=== PATIENT | male | born 1955 | race Caucasian/White ===

== ENCOUNTER 2025-05-25 16:18 | Outpatient (CLI) | payer MEDICARE, OTHER | END 2025-05-25 16:19 | disposition home or self-care (01) | LOC: SCSRAD 16:18 | PROVIDERS: ATTEND Nurse Practitioner Family | DX: M25.551 Pain in right hip (principal) ==

== ENCOUNTER 2025-06-15 15:29 | Outpatient (CLI) | payer MEDICARE | END 2025-06-15 15:30 | disposition home or self-care (01) | LOC: BICRAD 15:29 | PROVIDERS: ATTEND Specialist | DX: M25.551 Pain in right hip (principal); M25.561 Pain in right knee; E11.65 Type 2 diabetes mellitus with hyperglycemia; E03.8 Other specified hypothyroidism; E79.0 Hyperuricemia without signs of inflammatory arthritis and tophaceous disease; R53.83 Other fatigue; N30.80 Other cystitis without hematuria | CPT/HCPCS: 36415; 81001; 82043; 83036; 84443; 84550; 85025; 87077; 87086 ==